=== PATIENT | male | born 1955 | race Caucasian/White ===

== ENCOUNTER → 2023-12-28 14:32 | Outpatient (REF) | payer MEDICARE, OTHER, SELFPAY | LOC: HWRAD 14:32 | PROVIDERS: ATTENDING PHYSICIAN Nurse Practitioner Family | DX: R05.3 Chronic cough (principal) | CPT/HCPCS: 71046 ==

== ENCOUNTER → 2024-01-04 14:22 | Outpatient (REF) | payer MEDICARE, OTHER, SELFPAY | LOC: RAD 14:22 | PROVIDERS: ATTENDING PHYSICIAN Nurse Practitioner Family | DX: R91.8 Other nonspecific abnormal finding of lung field (principal); R05.3 Chronic cough | CPT/HCPCS: 71260; Q9967 ==

== ENCOUNTER → 2024-01-14 07:28 | Outpatient (REF) | payer MEDICARE, OTHER, SELFPAY | LOC: HWRAD 07:28 | PROVIDERS: ATTENDING PHYSICIAN Internal Medicine; FAMILY PHYSICIAN Nurse Practitioner Family | DX: R91.8 Other nonspecific abnormal finding of lung field (principal) | CPT/HCPCS: 71250 ==

== ENCOUNTER 2024-01-19 06:29 | Day surgery (SDC) | payer MEDICARE, OTHER, SELFPAY ==
[2024-01-13 07:09] VITALS: BMI 27.4
--- NOTE | 2024-01-17 15:16 | PTCARENOTE ---
Patients 12/14 platelets 555; reviewed by Dr. Betts- no additional interventions indicated.
[2024-01-19] VITALS (8 sets, daily range): BP systolic 117–173; BP diastolic 68–105; BMI 28.3
== END 2024-01-19 10:05 | disposition home or self-care (01) ==
LOC: SDS 06:29
PROVIDERS: ATTENDING PHYSICIAN Internal Medicine Critical Care Medicine
DX: C34.12 Malignant neoplasm of upper lobe, left bronchus or lung (principal); R91.8 Other nonspecific abnormal finding of lung field; Z87.891 Personal history of nicotine dependence; Z80.1 Family history of malignant neoplasm of trachea, bronchus and lung
CPT/HCPCS: 31629; 31627; 31652; 31623; 31628; 31624; 31654; 88172; 88173; 88305; 71045; 76000; 87015; 87070; 87102; 87116; 87205; 88112; 88333; 88341; 88342; 94640; C1887

== ENCOUNTER → 2024-02-04 09:16 | Outpatient (REF) | payer MEDICARE, OTHER, SELFPAY | LOC: MRI 3T 09:16 | PROVIDERS: ATTENDING PHYSICIAN Internal Medicine Hematology & Oncology; FAMILY PHYSICIAN Nurse Practitioner Family | DX: C34.12 Malignant neoplasm of upper lobe, left bronchus or lung (principal) | CPT/HCPCS: 70553; A9575 ==

== ENCOUNTER → 2025-02-14 12:53 | Outpatient (REF) | payer MEDICARE, OTHER, SELFPAY | LOC: MRI 3T 12:53 | PROVIDERS: ATTENDING PHYSICIAN Specialist; FAMILY PHYSICIAN Internal Medicine | DX: R97.20 Elevated prostate specific antigen [PSA] (principal) | CPT/HCPCS: 72197; A9575 ==

== ENCOUNTER 2025-03-08 06:28 | Day surgery (SDC) | payer MEDICARE, OTHER, SELFPAY | END 2025-03-08 10:08 | disposition home or self-care (01) | LOC: GI 06:28 | PROVIDERS: ATTENDING PHYSICIAN Internal Medicine Gastroenterology | DX: Z12.11 Encounter for screening for malignant neoplasm of colon (principal); K57.30 Diverticulosis of large intestine without perforation or abscess without bleeding; K64.8 Other hemorrhoids; D12.2 Benign neoplasm of ascending colon | CPT/HCPCS: 45385; 45380; 88305 ==